=== PATIENT | male | born 1985 | race Caucasian/White ===

== ENCOUNTER 2020-07-23 10:12 | Emergency (ER) | payer SELFPAY ==
[2020-07-23 10:13] VITALS: BP 135/96; PULSE 88; RESP 16; TEMP 36; O2SAT 100; BMI 20.9
--- NOTE | 2020-07-23 10:42 | RAD_ITS ---
STUDY: X-RAY - RIGHT ANKLE REASON FOR EXAM: Right ankle pain, right ankle injury at work. TECHNIQUE: 3 view(s) of the ankle. COMPARISON: None. FINDINGS: Normal visualized distal tibia and fibula. Normal medial and lateral malleoli. Normal tibiotalar articulation and ankle mortise. Normal visualized talus and calcaneus. The visualized subtalar, talonavicular, calcaneocuboid and tarsal articulations are normal. There is mild soft tissue swelling overlying the lateral malleolus. RAD/Ankle min 3 Views IMPRESSION: Mild soft tissue swelling overlying the lateral malleolus. No demonstrated fracture. Electronically Signed: Chase Bowser MD at 11:14 EDT Tel , Service support ,
--- NOTE | 2020-07-23 11:29 | ED.DCSUM_ITS ---
- ER Visit Summary Date of Service: 07/23/20 Chief Complaint: [Left ankle injury] History of Present Illness: The patient is a 34 M [presents to the emergency department complaint of pain in his right ankle that he has had for several days. Patient states that he was shoveling and he thinks he may have twisted or strained it. He has been having pain with ambulation and pressure in his ankle. He denies any fevers. He is able to bear weight. Patient otherwise has no medical history other than being hard of hearing.] Physical Examination: [HEENT-PERRLA, EOMI. Cranial nerves II through XII grossly intact. TMs clear. Mucous membranes moist. No adenopathy. Cardiovascular-regular rate and rhythm without murmur or ectopy Lungs-clear to auscultation, chest wall stable without crepitus or subcu emphysema Abdomen-normoactive bowel sounds, soft, nontender, no rebound or rigidity, no peritoneal signs. Extremities-intact ?4, normal range of motion, normal pulses, atraumatic. Left ankle-no significant soft tissue swelling noted. He is got diffuse tenderness palpation over the medial lateral malleolus and anterior portion of the ankle. No significant effusion noted. There is no erythema or warmth noted. He is neurovascular intact distally. No obvious deformity.] Test Results: [3 view x-rays of the left ankle obtained interpreted by myself as no acute fractures or dislocations. Radiology thought he may have some mild soft tissue swelling over the lateral malleolus.] Emergency Department Course and Treatment: [Patient was given an air splint and he refused crutches.] Treatment Plan: [Patient will be referred to primary care physician for follow- up in 5 to 7 days. He is to use ibuprofen for discomfort. He is to ice and elevate the extremity.] Disposition: Discharged home in stable condition [] Impression: [Left ankle sprain] This note was generated with [employer] dictation software. It may contain incorrect words, spelling, and punctuation that were not noted in review of the chart prior to signing ED Disposition - Plan for ED Patient: Referrals: Care Physician,No Primary [Primary Care Provider] -
--- NOTE | 2020-07-23 11:32 | ED.DEP ---
ED Disposition - Plan for ED Patient: Instructions: ED Sprain Ankle W X Ray Referrals: Care Physician,No Primary [Primary Care Provider] - Wilmer Velarde MD [STAFF PHYSICIAN] - 5-7 Days
== END 2020-07-23 11:51 | disposition home or self-care (01) ==
PROVIDERS: Emergency Provider Emergency Medicine
DX: S93.402A Sprain of unspecified ligament of left ankle, initial encounter (principal); X50.1XXA Overexertion from prolonged static or awkward postures, initial encounter; Y93.H1 Activity, digging, shoveling and raking; Y92.89 Other specified places as the place of occurrence of the external cause; Y99.8 Other external cause status
CPT/HCPCS: 73610; 99282